=== PATIENT | female | born 1945 | race Caucasian/White ===

== ENCOUNTER 2023-06-22 15:08 | Outpatient (CLI) | payer MEDICARE, OTHER ==
--- NOTE | 2023-06-22 20:15 | DEXA Report ---
PROCEDURE: Dexa Spine and/or Hip INDICATIONS: OSTEOPORSIS TECHNIQUE: Dual energy x-ray absorptiometry (DXA) was performed on a [employer] System. Regions measur ed are the AP Spine, femoral neck, and if needed forearm. COMPARISON: None. FINDINGS: Lumbar Spine: Bone Mineral Density 1.387 g/cm/cm,T score 1.7. Left Femoral Neck: Bone Mineral Density 0.785 g/cm/cm, T score -1.8. Left Hip: Bone Mineral Density 0.721 g/cm/cm,T score -2.3. (T score greater or equal to -1.0: NORMAL) (T score from -1.1 to -2.4: OSTEOPENIA) (T score less than or equal to -2.5 to: OSTEOPOROSIS) Impression: By WHO criteria, this patient has low bone density (osteopenia). Patients with diagnosis of osteoporosis or osteopenia should have regular bone mineral density assess ment. For those eligible for Medicare, routine testing is allowed once every 2 years. Testing frequ ency can be increased for patients who have rapidly progressing disease or for those who are receivin g medical therapy to restore bone mass. Reviewed by: Kenneth Waters MD on 06/22/2023 8:14 PM PDT Approved by: Kenneth Waters MD on 06/22/2023 8:14 PM PDT Station ID: [id number]
== END 2023-06-22 15:09 | disposition home or self-care (01) ==
LOC: DI 15:08
PROVIDERS: ATTEND Nurse Practitioner Family
DX: M85.89 Other specified disorders of bone density and structure, multiple sites (principal)

== ENCOUNTER 2024-03-11 19:42 | Outpatient (CLI) | payer MEDICARE, OTHER | END 2024-03-11 23:59 | disposition critical access hospital (66) | LOC: EMS 19:42 | DX: R41.82 Altered mental status, unspecified (principal); R29.810 Facial weakness; R32 Unspecified urinary incontinence; R26.9 Unspecified abnormalities of gait and mobility; W10.9XXA Fall (on) (from) unspecified stairs and steps, initial encounter | CPT/HCPCS: A0425; A0429 ==

== ENCOUNTER 2024-03-11 20:03 | Emergency (ER) | payer MEDICARE, OTHER ==
[2024-03-11 20:48] LABS: BILIRUBIN,URINE NEGATIVE (NEGATIVE); GLUCOSE, URINE (UA) NEGATIVE (NEGATIVE); KETONES,URINE (UA) NEGATIVE (NEGATIVE); LEUKOCYTE ESTERASE, URINE NEGATIVE (NEGATIVE); NITRITE,URINE NEGATIVE (NEGATIVE); OCCULT BLOOD,URINE NEGATIVE (NEGATIVE); PROTEIN,URINE NEGATIVE (NEGATIVE); UROBILINOGEN,URINE 0.2 (NORMAL) E.U./dL (NORMAL)
[2024-03-11 20:51] LABS: CLARITY,URINE CLEAR (CLEAR)
[2024-03-11 21:06] LABS: BASOPHILS # (AUTO) 0.1 10^3/uL (0.0-0.1); BASOPHILS % (AUTO) 0.7 %; EOSINOPHILS # (AUTO) 0.2 10^3/uL (0.0-0.7); EOSINOPHILS % (AUTO) 2.6 %; HCT - HEMATOCRIT 38.4 % (37.0-47.0); HGB - HEMOGLOBIN 12.8 g/dL (12.0-16.0); LYMPHOCYTES # (AUTO) 1.4 10^3/uL (1.5-3.5); LYMPHOCYTES % (AUTO) 15.4 %; MEAN CORPUSCULAR HEMOGLOBIN 31.1 pg (27.0-31.0); MEAN CORPUSCULAR HGB CONC 33.3 g/dL (32.0-36.0); MEAN CORPUSCULAR VOLUME 93.2 fL (81.0-99.0); MEAN PLATELET VOLUME 8.2 fL (7.9-10.8); MONOCYTES # (AUTO) 0.6 10^3/uL (0.0-1.0); MONOCYTES % (AUTO) 6.4 %; NEUTROPHILS # (AUTO) 6.8 10^3/uL (1.5-6.6); NEUTROPHILS % (AUTO) 74.5 %; PLT - PLATELET COUNT 349 10^3/uL (130-450); RED BLOOD COUNT 4.12 10^6/uL (4.20-5.40); RED CELL DISTRIBUTION WIDTH 14.6 % (12.0-15.0); WHITE BLOOD COUNT 9.1 x10^3/uL (4.8-10.8)
[2024-03-11 21:19] LABS: ALBUMIN 4.4 g/dL (3.2-5.5); ALBUMIN/GLOBULIN RATIO 1.6 (1.0-2.2); BILIRUBIN,TOTAL 0.3 mg/dL (0.2-1.0); CALCIUM 9.9 mg/dL (8.5-10.3); CREATININE 0.6 mg/dL (0.6-1.3); ETOH - ETHANOL 247.5 mg/dL; POTASSIUM 3.4 mmol/L (3.5-4.5); TOTAL PROTEIN 7.1 g/dL (6.4-8.9)
[2024-03-11] MEDS: SODIUM CHLORIDE 0.9% 1,000 ML IV STA (21:30)
--- NOTE | 2024-03-11 21:44 | ED Physician Documentation ---
History of Present Illness - Stated complaint Stated Complaint: GLF - Chief complaint Chief Complaint: General - History obtained from History obtained from: Family - Additonal information Additional information: Patient is a 78-year-old female with a history of Alzheimer's presenting for evaluation of worsening confusion, weakness and urinating on herself starting this evening. Family states that this evening they were sitting down and she had a drink as she usually does and then afterwards that they heard her fall. At the did not see her fall and patient was unsure of how or why she fell. Jude reece was too weak to get up even with assistance. They state that she has urinated on herself 3 times. They state that she seems more confused than her baseline. They state that this morning and up until around 5:00 she seemed to be her usual self. She does not take blood thinners. Review of Systems Unable to obtain: Dementia PD PAST MEDICAL HISTORY - Past Medical History Past Medical History: Yes Neuro: Dementia - Allergies Allergies/Adverse Reactions: Allergies Allergy/AdvReac Type Severity Reaction Status Date / Time No Known Drug Allergies Allergy Verified 03/11/24 20:07 - Social History Does the pt smoke?: No Smoking Status: Never smoker Does the pt drink ETOH?: Yes Does the pt have substance abuse?: No - Immunizations Immunizations are current?: Yes PD ED PE NORMAL - General General: No acute distress, Well developed/nourished. No: Alert and oriented X 3 (Alert and oriented to person, place and year but not to why she is here or month) - HEENT HEENT: Atraumatic, PERRL, EOMI, Moist mucous membranes, Pharynx benign - Neck Neck: Supple, no meningeal sign - Cardiac Cardiac: RRR, Strong equal pulses - Respiratory Respiratory: No respiratory distress, Clear bilaterally - Abdomen Abdomen: Normal bowel sounds, Soft, Non tender, Non distended - Derm Derm: Warm and dry - Extremities Extremities: Normal ROM s pain, No edema - Neuro Neuro: counter pocket sewer 2-12 intact, No motor deficit, No sensory deficit, Normal speech, Other (Normal [id number] bilaterally). No: Alert and oriented X 3 (Alert and oriented to person, place and year) Eye Opening: Spontaneous Motor: Obeys Commands Verbal: Oriented GCS Score: 15 Results - Vitals Vitals: Vital Signs - 24 hr 03/11/24 03/11/2424 20:07 21:24 23:24 Temperature 36.8 C Heart Rate 73 61 77 Respiratory 16 14 18 Rate Blood Pressure 137/65 H 138/81 H 108/95 H O2 Saturation 98 97 95 Oxygen O2 Source Room air - EKG (time done) 2113 EKG releavant findings:: EKG personally interpreted by author of this note. Relevant findings are: Rate 60, normal sinus rhythm, no STEMI, T wave inversions in lateral leads, no prior for comparison - Labs Labs: Laboratory Tests 03/11/24 03/11/24 03/11/24 20:42 21:01 21:01 WBC 9.1 RBC 4.12 L Hgb 12.8 Hct 38.4 MCV 93.2 MCH 31.1 H MCHC 33.3 RDW 14.6 Plt Count 349 MPV 8.2 Neut # (Auto) 6.8 H Lymph # (Auto) 1.4 L [place] # (Auto) 0.6 Eos # (Auto) 0.2 Baso # (Auto) 0.1 Absolute Nucleated RBC 0.00 Nucleated RBC % 0.0 Sodium 130 L Potassium 3.4 L Chloride 97 L Carbon Dioxide 25 Anion Gap 8.0 BUN 10 Creatinine 0.6 Estimated GFR (MDRD) 97 Glucose 96 Calcium 9.9 Total Bilirubin 0.3 AST 23 ALT 12 Alkaline Phosphatase 47 Total Protein 7.1 Albumin 4.4 Globulin 2.7 Albumin/Globulin Ratio 1.6 Lipase 41 Urine Color YELLOW Urine Clarity CLEAR Urine pH 6.0 Ur Specific [place] <=1.005 Urine Protein NEGATIVE Urine Glucose (UA) NEGATIVE Urine Ketones NEGATIVE Urine Occult Blood NEGATIVE Urine Nitrite NEGATIVE Urine Bilirubin NEGATIVE Urine Urobilinogen 0.2 (NORMAL) Ur Leukocyte Esterase NEGATIVE Ur Microscopic Review NOT INDICATED Urine Culture Comments NOT INDICATED Ethyl Alcohol 247.5 PD Medical Decision Making - ED course Complexity details: reviewed results, re-evaluated patient, d/w patient, d/w family ED course: Patient is a 78-year-old female with a history of Alzheimer's presenting for evaluation of increased confusion and weakness noted this evening. No focal deficits noted on exam. CBC, chemistries were reviewed. Family had reported that patient did have a drink tonight and so an ethanol level was obtained which came back quite elevated at 247. When I spoke with family members regarding this they stated that patient pours herself a drink and that it is usually black velvet and Sprite. She has been told by her PCP that she should limit her alcohol intake but family does report that she regularly uses alcohol. CT head and cervical spine were obtained given unwitnessed fall which are unremarkable. Chest x-ray negative for pneumonia. Urinalysis is negative for infection. Patient received IV fluids. Chemistries with sodium of 130. Patient was observed for several hours and appeared improved. She was able to ambulate to the bathroom without assistance. Family members feel that she is now back to her baseline and expect that the alcohol was contributing to her symptoms earlier today. Patient advised on reducing alcohol intake And need for close follow-up with PCP. Departure - Departure Disposition: 01 Home, Self Care Clinical Impression: Alcohol intoxication, Weakness, Alzheimer's dementia, Hyponatremia Condition: Stable Instructions: ED Dementia Caregiver Support, ED Alcohol Intoxication Comments: You were evaluated for being weak this evening and on her testing we found that your alcohol level was significantly elevated. Please limit your alcohol intake. Your salt level was also slightly low. We do not have any prior lab testing to see if this is normal for you. I would recommend follow-up with your primary care provider. Please return to the ER if you develop any new or worsening symptoms. Forms: PCP List Discharge Date/Time: 03/12/24 00:11 NIHSS - Level of Consciousness Level of consciousness: (0) Alert, Keenly responsive LOC Questions: (1) Answers one Q correctly LOC Commands: (0) Performs both correctly - Gaze Best Gaze: (0) Normal - Visual Visual: (0) No loss - Facial Palsy Facial Palsy: (0) Normal, symmetrical movement - Motor Arms (both separate) Motor Arm (right): (0) No drift Motor Arm (left): (0) No drift - Motor Legs (both separate) Motor Leg (right): (0) No drift Motor Leg (left): (0) No drift - Limb Ataxia Limb Ataxia: (0) Absent - Sensory Sensory: (0) Normal - Best Language Best Language: (0) No aphasia - Dysarthria Dysarthria: (0) Normal - Extinction and Inattention (formally neg Extinction and inattention: (0) No abnormality - Total Score/Results Total Score/Result: 1
--- NOTE | 2024-03-11 22:20 | CT Report ---
PROCEDURE: Head WO INDICATIONS: AMS ; L sided facial weakness TECHNIQUE: Noncontrast 4.5 mm thick angled axial sections acquired from the foramen magnum to the vertex. For r adiation dose reduction, the following was used: automated exposure control, adjustment of mA and/or kV according to patient size. COMPARISON: None FINDINGS: Image quality: Excellent. CSF spaces: Basal cisterns are patent. No extra-axial fluid collections. The ventricles are symmet sapphire in size and shape. Brain: No intracranial bleeds or masses. There is cerebral volume loss for age, with resultant vent ricular and sulcal prominence. There are periventricular and deep white matter chronic small vessel ischemic changes. There is intracranial internal carotid artery atherosclerosis. Skull and face: Calvarium and visualized facial bones appear intact, without suspicious lesions. Sinuses: Visualized sinuses and mastoids are clear. IMPRESSION: 1. No acute intracranial pathology. 2. Age-related volume loss. Mild to moderate white matter chronic small vessel ischemic changes. Reviewed by: Armando Marin MD on 03/11/2024 10:19 PM PDT Approved by: Armando Marin MD on 03/11/2024 10:19 PM PDT Station ID: [id number]
--- NOTE | 2024-03-11 22:22 | CT Report ---
PROCEDURE: Cervical Spine WO INDICATIONS: unwitnessed fall TECHNIQUE: Noncontrast 3 mm thick sections acquired from the skull base to the T4 level. Sagittal and coronal r eformats were then constructed. For radiation dose reduction, the following was used: automated exp osure control, adjustment of mA and/or kV according to patient size. COMPARISON: None. FINDINGS: Image quality: Excellent. Bones: No fractures or dislocations. Loss of disc height, degenerative endplate changes and bilater al uncovertebral hypertrophic changes are noted throughout cervical spine causing bsvd-[id number]-senbolap ce ntral canal stenosis and bilateral neural foraminal narrowing more notably at C5-6 and C6-7 levels. V isualized superior ribs are intact. Soft tissues: Prevertebral soft tissues are normal in thickness. No paravertebral hematomas. No ap ical pneumothoraces. IMPRESSION: 1. No acute cervical spine fracture or dislocation. 2. Degenerative disc disease throughout cervical spine as above. Reviewed by: Armando Marin MD on 03/11/2024 10:20 PM PDT Approved by: Armando Marin MD on 03/11/2024 10:20 PM PDT Station ID: [id number]
--- NOTE | 2024-03-11 22:28 | XRAY Report ---
PROCEDURE: Chest 1V INDICATIONS: AMS TECHNIQUE: One view of the chest was acquired. COMPARISON: None. FINDINGS: Surgical changes and devices: None. Lungs and pleura: No pleural effusions or pneumothorax. Lungs are clear. Mediastinum: Mediastinal contours appear normal. Heart size is normal. Bones and chest wall: No suspicious bony lesions. Overlying soft tissues appear unremarkable. IMPRESSION: No acute cardiopulmonary process. Reviewed by: Armando Marin MD on 03/11/2024 10:26 PM PDT Approved by: Armando Marin MD on 03/11/2024 10:26 PM PDT Station ID: [id number]
[2024-03-11 23:26] VITALS: BP 108/95; O2SAT 95
== END 2024-03-12 00:11 | disposition home or self-care (01) ==
LOC: EDUNIT# → ED 20:03
DX: F10.129 Alcohol abuse with intoxication, unspecified (principal); Y90.8 Blood alcohol level of 240 mg/100 ml or more; E87.1 Hypo-osmolality and hyponatremia; R53.1 Weakness; R94.31 Abnormal electrocardiogram [ECG] [EKG]; G30.9 Alzheimer's disease, unspecified; F02.80 Dementia in other diseases classified elsewhere, unspecified severity, without behavioral disturbance, psychotic disturbance, mood disturbance, and anxiety
CPT/HCPCS: 36415; 70450; 71045; 72125; 80053; 81003; 83690; 85025; 93005; 96360; 96361; 99284; G0480; 81001; 82077; 87086